=== PATIENT | female | born 1955 | race Caucasian/White ===

== ENCOUNTER 2023-02-27 11:58 | Inpatient (IN) | payer MEDICARE, OTHER ==
[2023-02-27] VITALS (8 sets, daily range): BP systolic 109–132; BP diastolic 52–85; TEMP 98.8–99.2; O2SAT 93–96
[~2023-02-27] VITALS: Ht 152.4 cm; Wt 110.4 kg
[~2023-02-27 11:58] MED LIST: ACET325T53 PO; ALBU2.5V13 NEB; ALLA266C2 TP; ATEN-171 PO; ATOR10TA PO; BISA10SU8 RC; Capsaicin TP; DILT30TA2 PO; DOCU-159 PO; FERR325T91 PO; FOLI1TAB16 PO; FURO-144 PO; GLIP1TAB6 PO; HYDR50TA61 PO; INSU100I4 SQ; INSU3INS6 SQ; Ipratropium Bromide IH; LEVO200T PO; MAGN400O6 PO; MENT1LOZ19 MM; Nortriptyline Hcl PO; OMEP20CA15 PO
[2023-02-27 12:28] LABS: BASOPHILS % (AUTO) 0.3 % (0.0-2.0); EOSINOPHILS # (AUTO) 0.2 K/uL (0.0-0.7); EOSINOPHILS % (AUTO) 1.6 % (0.0-6.0); HEMATOCRIT 37 % (33-45); LYMPHOCYTES # (AUTO) 0.9 K/uL (0.8-4.8); MEAN CORPUSCULAR HEMOGLOBIN 27 PG (26.0-33.0); MEAN CORPUSCULAR HGB CONC 33 g/dl (31.0-36.0); MEAN CORPUSCULAR VOLUME 81 fL (82-100); MONOCYTES # (AUTO) 0.7 K/uL (0.1-1.30); MONOCYTES % (AUTO) 5.7 % (2.0-12.0); NEUTROPHILS # (AUTO) 9.9 K/uL (1.8-8.9); NEUTROPHILS % (AUTO) 84.4 % (43.0-81.0); PLATELET COUNT (AUTO) 196 K/uL (150-450); RED BLOOD CELL COUNT(AUTO) 4.52 MIL/uL (4.0-5.2); RED CELL DISTRIBUTION WIDTH 15.7 % (11.5-15.0); WHITE BLOOD COUNT (AUTO) 11.7 K/uL (4.3-11.0)
[2023-02-27] MEDS ORDERED: ATOR10TA PO (12:33)
[2023-02-27] MEDS ORDERED: ASPI-1420 PO (12:33)
[2023-02-27] MEDS ORDERED: OXYB5TAB16 PO (12:33)
[2023-02-27] MEDS ORDERED: DOCU100C36 PO (12:33)
[2023-02-27] MEDS ORDERED: FURO-145 PO (12:33)
[2023-02-27] MEDS ORDERED: METO25TA20 PO (12:33)
[2023-02-27] MEDS ORDERED: INSU100I4 SQ (12:33)
[2023-02-27] MEDS ORDERED: TOPI100T38 PO (12:33)
[2023-02-27] MEDS ORDERED: SEMA0.25 SQ (12:33)
[2023-02-27] MEDS ORDERED: OXYC15TA2 PO (12:33)
[2023-02-27] MEDS ORDERED: MELO-107 PO (12:33)
[2023-02-27] MEDS ORDERED: ISOS30TA86 PO (12:33)
[2023-02-27] MEDS ORDERED: NALO4SPR NAS (12:33)
[2023-02-27] MEDS ORDERED: TRAZ-257 PO (12:33)
[2023-02-27] MEDS ORDERED: LEVO150T PO (12:33)
[2023-02-27] MEDS ORDERED: LORA-258 PO (12:33)
[2023-02-27] MEDS ORDERED: DULO60CA64 PO (12:33)
[2023-02-27] MEDS ORDERED: METF-442 PO (12:33)
[2023-02-27] MEDS ORDERED: ESOM40CA52 PO (12:33)
[2023-02-27] MEDS ORDERED: CLOP75TA15 PO (12:33)
[2023-02-27] MEDS ORDERED: INSU100V7 SQ (12:43)
[2023-02-27 12:51] LABS: CALCIUM, SERUM 8.5 mg/dL (8.5-10.1); CARBON DIOXIDE 24 mmol/L (21-32); CHLORIDE 107 mmol/L (98-107); CREATININE 1.3 mg/dL (0.6-1.3); GLUCOSE 180 mg/dL (74-106); POTASSIUM 4.3 mmol/L (3.5-5.1); SODIUM SERUM 140 mmol/L (136-145); UREA NITROGEN, BLOOD 30 mg/dL (7-18)
[2023-02-27 12:56] LABS: ALANINE AMINOTRANSFERASE 20 U/L (12-78); ALBUMIN 2.7 g/dL (3.4-5.0); ALKALINE PHOSPHATASE 103 U/L (46-116); ASPARTATE AMINOTRANSFERASE 14 U/L (15-37); BILIRUBIN,DIRECT 0.1 mg/dL (0.0-0.2); BILIRUBIN,TOTAL 0.3 mg/dL (0.2-1.0); TOTAL PROTEIN, SERUM 6.1 g/dL (6.4-8.2)
[2023-02-27] MEDS ORDERED: MORPHINE SULFATE INJ 2 MG/ML DISP.SYRIN ONE (12:56)
[2023-02-27] MEDS ORDERED: METOPROLOL TARTRATE INJ 5 MG/5 ML AMPUL IV ONE (13:00)
[2023-02-27] MEDS ORDERED: MORPHINE SULFATE INJ 2 MG/ML DISP.SYRIN IV ONE (13:00)
[2023-02-27] MEDS ORDERED: METOPROLOL TARTRATE 25 MG TABLET PO ONE (13:00)
[2023-02-27] MEDS ORDERED: METOPROLOL TARTRATE INJ 5 MG/5 ML AMPUL ONE (13:05)
[2023-02-27] MEDS ORDERED: METOPROLOL TARTRATE 25 MG TABLET ONE (13:06)
[2023-02-27] MEDS ORDERED: INSU300I3 SQ (13:30)
[2023-02-27] MEDS ORDERED: MAG HYDROX/AL HYDROX/SIMETH 30 ML UDC PO PRN (16:00)
[2023-02-27] MEDS ORDERED: DEXTROSE 50%-WATER 50 ML DISP.SYRIN IV PRN ×2 (16:00→19:00)
[2023-02-27] MEDS ORDERED: ZOLPIDEM TARTRATE 5 MG TABLET PO PRN (16:00)
[2023-02-27] MEDS ORDERED: ONDANSETRON HCL/PF 4 MG/2 ML VIAL IVP PRN (16:00)
[2023-02-27] MEDS ORDERED: MAGNESIUM HYDROXIDE 30 ML UDC PO PRN (16:00)
[2023-02-27] MEDS ORDERED: Z GUARD REMEDY 4 OZ OINT TP PRN (16:00)
[2023-02-27] MEDS ORDERED: DILTIAZEM HCL IV 125 MG in IV NS 0.9% 100 ML IV PRN (16:00)
[2023-02-27] MEDS: BLOOD SUGAR DIAGNOSTIC 1 EACH STRIP VI SCH ×2 (17:59→21:07)
[2023-02-27] MEDS ORDERED: ENOXAPARIN SODIUM 40 MG/0.4 ML DISP.SYRIN SQ SCH (18:00)
[2023-02-27] MEDS ORDERED: INSULIN REGULAR, HUMAN 100 UNIT/ML 3 ML VIAL SQ PRN (19:00)
[2023-02-27] MEDS ORDERED: *INSULIN REGULAR(HUMULIN R)HUM 100 UNIT/ML VIAL SQ PRN (19:00)
[2023-02-27] MEDS ORDERED: LORAZEPAM 0.5 MG TABLET PO PRN (19:00)
[2023-02-27] MEDS: ACETAMINOPHEN 325 MG TABLET PO PRN (19:45)
[2023-02-27] MEDS ORDERED: NALOXONE HCL 0.4 MG/ML AMPUL IV PRN (20:00)
[2023-02-27] MEDS ORDERED: oxyCODONE IR immediate release 5 MG PO PRN (20:00)
[2023-02-27] MEDS: TOPIRAMATE 100 MG TABLET PO SCH (21:06)
[2023-02-27] MEDS: ATORVASTATIN 10 MG TABLET PO SCH (21:06)
[2023-02-27] MEDS: TRAZODONE 50 MG TABLET PO SCH (21:06)
[2023-02-27] MEDS: INSULIN REGULAR, HUMAN 100 UNIT/ML 3 ML VIAL SQ PRN (21:25)
[2023-02-27] MEDS ORDERED: INSULIN GLARGINE, 100 UNIT/ML CARTRIDGE SQ SCH (22:00)
[2023-02-27] MEDS ORDERED: BLOOD SUGAR DIAGNOSTIC 1 EACH STRIP VI SCH (22:00)
[2023-02-28] VITALS (15 sets, daily range): BP systolic 105–150; BP diastolic 33–65; TEMP 97.9–98.6; O2SAT 93–97
[2023-02-28 04:39] LABS: CALCIUM, SERUM 8.7 mg/dL (8.5-10.1); CREATININE 1.3 mg/dL (0.6-1.3); MAGNESIUM 1.7 mg/dL (1.8-2.4); PHOSPHORUS 4.7 mg/dL (2.5-4.9); POTASSIUM 4.3 mmol/L (3.5-5.1)
[2023-02-28 04:51] LABS: THYROID STIMULATING HORMONE 1.203 uIU/mL (0.358-3.74)
[2023-02-28] MEDS: ACETAMINOPHEN 325 MG TABLET PO PRN (05:21)
[2023-02-28] MEDS ORDERED: INSULIN LISPRO/ASPART 100 UNIT/ML CARTRIDGE SQ SCH (07:30)
[2023-02-28] MEDS: PANTOPRAZOLE 40 MG TABLET.DR PO SCH (07:46)
[2023-02-28] MEDS: LEVOTHYROXINE SODIUM 50 MCG TABLET PO SCH (07:47)
[2023-02-28] MEDS: BLOOD SUGAR DIAGNOSTIC 1 EACH STRIP VI SCH ×4 (07:47→22:23)
[2023-02-28 08:43] LABS: BASOPHILS % (AUTO) 0.5 % (0.0-2.0); EOSINOPHILS # (AUTO) 0.2 K/uL (0.0-0.7); EOSINOPHILS % (AUTO) 1.9 % (0.0-6.0); HEMATOCRIT 36 % (33-45); HEMOGLOBIN 11.4 g/dL (11.5-14.8); LYMPHOCYTES # (AUTO) 1.3 K/uL (0.8-4.8); LYMPHOCYTES % (AUTO) 14.7 % (20.0-44.0); MEAN CORPUSCULAR HEMOGLOBIN 27 PG (26.0-33.0); MEAN CORPUSCULAR HGB CONC 32 g/dl (31.0-36.0); MEAN CORPUSCULAR VOLUME 83 fL (82-100); MONOCYTES # (AUTO) 0.6 K/uL (0.1-1.30); MONOCYTES % (AUTO) 6.4 % (2.0-12.0); NEUTROPHILS # (AUTO) 6.6 K/uL (1.8-8.9); NEUTROPHILS % (AUTO) 76.5 % (43.0-81.0); PLATELET COUNT (AUTO) 174 K/uL (150-450); WHITE BLOOD COUNT (AUTO) 8.6 K/uL (4.3-11.0)
[2023-02-28] MEDS ORDERED: Medication Not On Formulary EA (Esomeprazole Magnesium 40 MG) PO SCH (09:00)
[2023-02-28] MEDS ORDERED: FUROSEMIDE 20 MG TABLET PO SCH (09:00)
[2023-02-28] MEDS ORDERED: METOPROLOL TARTRATE 25 MG TABLET PO SCH (09:00)
[2023-02-28] MEDS ORDERED: MELOXICAM 7.5 MG TABLET PO SCH (09:00)
[2023-02-28] MEDS ORDERED: CLOPIDOGREL BISULFATE 75 MG TABLET PO SCH (09:00)
[2023-02-28] MEDS: DOCUSATE SODIUM 100 MG CAPSULE PO SCH ×2 (09:23→16:30)
[2023-02-28] MEDS: ASPIRIN EC 81 MG TABLET.DR PO SCH (09:23)
[2023-02-28] MEDS: OXYBUTYNIN CHLORIDE 5 MG TABLET PO SCH ×2 (09:24→16:30)
[2023-02-28] MEDS: DULOXETINE HCL 30 MG CAPSULE.DR PO SCH ×2 (09:25→16:30)
[2023-02-28] MEDS: CLOTRIMAZOLE 1% 15 GM TUBE TP SCH ×2 (09:27→16:31)
[2023-02-28] MEDS ORDERED: MAGNESIUM OXIDE 400 MG TABLET PO ONE (10:00)
[2023-02-28] MEDS ORDERED: Magnesium 1GM/D5W 100ML PREMIX 100 ML IV SCH (10:00)
[2023-02-28 10:41] LABS: THYROID STIMULATING HORMONE 1.506 uIU/mL (0.358-3.74)
[2023-02-28] MEDS: AMIODARONE HCL 200 MG TABLET PO SCH ×3 (11:25→17:00)
[2023-02-28] MEDS: ISOSORBIDE MONONITRATE (30MG) 30 MG TAB.SR.24H PO SCH (11:30)
[2023-02-28] MEDS: INSULIN LISPRO/ASPART 100 UNIT/ML CARTRIDGE SQ SCH ×2 (12:23→17:28)
[2023-02-28] MEDS ORDERED: IV NS 0.9% 250 ML IV ONE (13:41)
[2023-02-28] MEDS ORDERED: IOHEXOL-300 100 ML VIAL IV ONE (13:41)
[2023-02-28] MEDS: CARISOPRODOL 350 MG TABLET PO PRN ×2 (15:07→23:17)
[2023-02-28] MEDS: HYDROCODONE/APAP 5/325MG TABLET PO PRN (16:31)
[2023-02-28 19:07] LABS: APPEARANCE,URINE SLIGHTLY CLOUDY (CLEAR); BILIRUBIN,URINE NEGATIVE (NEGATIVE); BLOOD, URINE NEGATIVE Ery/uL (NEGATIVE); COLOR,URINE YELLOW (YELLOW); KETONES,URINE NEGATIVE (NEGATIVE); LEUKOCYTE ESTERASE ,URINE 1+ (NEGATIVE); NITRITE, URINE NEGATIVE (NEGATIVE); PROTEIN,URINE TRACE mg/dl (NEGATIVE); UGLUCOSE NEGATIVE (NEGATIVE); UROBILINOGEN,URINE 0.2 EU/dL (0.2)
[2023-02-28 19:25] LABS: ADD URINE CULTURE YES; BACTERIA,URINE 3+ /HPF (None Seen); RBC,URINE NONE SEEN /HPF (0-2)
[2023-02-28 19:26] LABS: MUCUS,URINE Few /LPF (None Seen)
[2023-02-28] MEDS: INSULIN GLARGINE, 100 UNIT/ML CARTRIDGE SQ SCH (22:00)
[2023-02-28] MEDS: ATORVASTATIN 10 MG TABLET PO SCH (22:02)
[2023-02-28] MEDS: TOPIRAMATE 100 MG TABLET PO SCH (22:02)
[2023-02-28] MEDS: TRAZODONE 50 MG TABLET PO SCH (22:02)
[2023-03-01] VITALS: BP 132/57; TEMP 98.4; O2SAT 96
[2023-03-01] MEDS: HYDROCODONE/APAP 5/325MG TABLET PO PRN ×3 (03:19→18:14)
[2023-03-01 04:00] VITALS: BP 130/55; TEMP 98.1; O2SAT 96
[2023-03-01] MEDS: PANTOPRAZOLE 40 MG TABLET.DR PO SCH (07:49)
[2023-03-01] MEDS: LEVOTHYROXINE SODIUM 50 MCG TABLET PO SCH (07:50)
[2023-03-01 08:00] VITALS: BP 153/56; TEMP 97.5; O2SAT 96
[2023-03-01] MEDS: INSULIN REGULAR, HUMAN 100 UNIT/ML 3 ML VIAL SQ PRN ×3 (08:19→17:42)
[2023-03-01] MEDS: INSULIN LISPRO/ASPART 100 UNIT/ML CARTRIDGE SQ SCH ×3 (08:21→16:52)
[2023-03-01] MEDS: BLOOD SUGAR DIAGNOSTIC 1 EACH STRIP VI SCH ×4 (08:22→22:17)
[2023-03-01] MEDS: ASPIRIN EC 81 MG TABLET.DR PO SCH (09:08)
[2023-03-01] MEDS: AMIODARONE HCL 200 MG TABLET PO SCH ×2 (09:08→16:45)
[2023-03-01] MEDS: DOCUSATE SODIUM 100 MG CAPSULE PO SCH ×2 (09:09→16:44)
[2023-03-01] MEDS: ISOSORBIDE MONONITRATE (30MG) 30 MG TAB.SR.24H PO SCH (09:09)
[2023-03-01] MEDS: OXYBUTYNIN CHLORIDE 5 MG TABLET PO SCH ×2 (09:10→16:44)
[2023-03-01] MEDS: CLOTRIMAZOLE 1% 15 GM TUBE TP SCH ×2 (09:10→16:28)
[2023-03-01] MEDS: DULOXETINE HCL 30 MG CAPSULE.DR PO SCH ×2 (09:14→16:45)
[2023-03-01] MEDS: ENOXAPARIN SODIUM 100 MG/ML DISP.SYRIN SQ SCH (09:59)
[2023-03-01] MEDS: CARISOPRODOL 350 MG TABLET PO PRN ×2 (09:59→20:23)
[2023-03-01 12:00] VITALS: BP 126/52; TEMP 97.6; O2SAT 96
[2023-03-01] MEDS ORDERED: BISACODYL (5 MG) 5 MG TABLET.DR PO ONE (14:30)
[2023-03-01] MEDS ORDERED: BISACODYL SUPP (10 MG) 10 MG/SUPP.RECT SUPP.RECT RC PRN (14:30)
[2023-03-01] MEDS: POLYETHYLENE GLYCOL 3350 17 GM POWD.PACK PO SCH ×2 (15:41→22:01)
[2023-03-01] MEDS: CEFTRIAXONE 1 G in IV D5W 50 ML IV SCH (15:41)
[2023-03-01 16:00] VITALS: BP 129/57; TEMP 98.2; O2SAT 96
[2023-03-01 20:00] VITALS: BP 142/61; TEMP 97.9; O2SAT 98
[2023-03-01] MEDS: TRAZODONE 50 MG TABLET PO SCH (22:01)
[2023-03-01] MEDS: TOPIRAMATE 100 MG TABLET PO SCH (22:01)
[2023-03-01] MEDS: ATORVASTATIN 10 MG TABLET PO SCH (22:01)
[2023-03-01] MEDS: INSULIN GLARGINE, 100 UNIT/ML CARTRIDGE SQ SCH (22:18)
[2023-03-02] VITALS: BP 141/62; TEMP 98; O2SAT 96
[2023-03-02 04:00] VITALS: BP 137/63; TEMP 98; O2SAT 96
[2023-03-02] MEDS: HYDROCODONE/APAP 5/325MG TABLET PO PRN ×3 (04:19→15:56)
[2023-03-02 06:08] LABS: BASOPHILS % (AUTO) 0.4 % (0.0-2.0); EOSINOPHILS # (AUTO) 0.2 K/uL (0.0-0.7); EOSINOPHILS % (AUTO) 2.6 % (0.0-6.0); HEMATOCRIT 35 % (33-45); HEMOGLOBIN 11.6 g/dL (11.5-14.8); LYMPHOCYTES # (AUTO) 0.8 K/uL (0.8-4.8); LYMPHOCYTES % (AUTO) 13.3 % (20.0-44.0); MEAN CORPUSCULAR HEMOGLOBIN 27 PG (26.0-33.0); MEAN CORPUSCULAR HGB CONC 33 g/dl (31.0-36.0); MEAN CORPUSCULAR VOLUME 81 fL (82-100); MONOCYTES # (AUTO) 0.4 K/uL (0.1-1.30); MONOCYTES % (AUTO) 7.1 % (2.0-12.0); NEUTROPHILS # (AUTO) 4.6 K/uL (1.8-8.9); NEUTROPHILS % (AUTO) 76.6 % (43.0-81.0); PLATELET COUNT (AUTO) 169 K/uL (150-450); RED BLOOD CELL COUNT(AUTO) 4.28 MIL/uL (4.0-5.2); RED CELL DISTRIBUTION WIDTH 15.6 % (11.5-15.0)
[2023-03-02 06:21] LABS: CALCIUM, SERUM 8.7 mg/dL (8.5-10.1); CREATININE 1.2 mg/dL (0.6-1.3); POTASSIUM 4.3 mmol/L (3.5-5.1)
[2023-03-02 08:00] VITALS: BP 155/67; TEMP 97.7; O2SAT 98
[2023-03-02] MEDS: LEVOTHYROXINE SODIUM 50 MCG TABLET PO SCH (08:00)
[2023-03-02] MEDS: BLOOD SUGAR DIAGNOSTIC 1 EACH STRIP VI SCH ×4 (08:02→22:39)
[2023-03-02] MEDS: INSULIN LISPRO/ASPART 100 UNIT/ML CARTRIDGE SQ SCH ×3 (08:02→16:46)
[2023-03-02] MEDS: PANTOPRAZOLE 40 MG TABLET.DR PO SCH (08:02)
[2023-03-02] MEDS: DOCUSATE SODIUM 100 MG CAPSULE PO SCH ×2 (08:58→15:55)
[2023-03-02] MEDS: DULOXETINE HCL 30 MG CAPSULE.DR PO SCH ×2 (08:59→15:56)
[2023-03-02] MEDS: AMIODARONE HCL 200 MG TABLET PO SCH ×2 (08:59→16:44)
[2023-03-02] MEDS: OXYBUTYNIN CHLORIDE 5 MG TABLET PO SCH ×2 (09:00→15:56)
[2023-03-02] MEDS: ASPIRIN EC 81 MG TABLET.DR PO SCH (09:00)
[2023-03-02] MEDS: ISOSORBIDE MONONITRATE (30MG) 30 MG TAB.SR.24H PO SCH (09:00)
[2023-03-02] MEDS: ENOXAPARIN SODIUM 100 MG/ML DISP.SYRIN SQ SCH (09:01)
[2023-03-02] MEDS: CLOTRIMAZOLE 1% 15 GM TUBE TP SCH ×2 (09:33→16:44)
[2023-03-02] MEDS: CARISOPRODOL 350 MG TABLET PO PRN ×2 (11:22→20:42)
[2023-03-02] MEDS: INSULIN REGULAR, HUMAN 100 UNIT/ML 3 ML VIAL SQ PRN ×2 (11:38→18:13)
[2023-03-02 12:00] VITALS: BP 121/57; TEMP 97.5; O2SAT 100
[2023-03-02] MEDS: CEFTRIAXONE 1 G in IV D5W 50 ML IV SCH (15:22)
[2023-03-02 16:00] VITALS: BP 132/58; TEMP 97.5; O2SAT 100
[2023-03-02] MEDS ORDERED: MAGNESIUM CITRATE 296 ML BOTTLE PO ONE (16:00)
[2023-03-02 20:00] VITALS: BP 160/69; TEMP 98.2; O2SAT 96
[2023-03-02] MEDS: TOPIRAMATE 100 MG TABLET PO SCH (21:51)
[2023-03-02] MEDS: ATORVASTATIN 10 MG TABLET PO SCH (21:51)
[2023-03-02] MEDS: TRAZODONE 50 MG TABLET PO SCH (21:52)
[2023-03-02] MEDS: POLYETHYLENE GLYCOL 3350 17 GM POWD.PACK PO SCH (21:52)
[2023-03-02] MEDS: oxyCODONE IR immediate release 5 MG PO PRN (22:01)
[2023-03-02] MEDS: *INSULIN REGULAR(HUMULIN R)HUM 100 UNIT/ML VIAL SQ PRN (22:08)
[2023-03-02] MEDS: INSULIN GLARGINE, 100 UNIT/ML CARTRIDGE SQ SCH (22:40)
[2023-03-03] VITALS: BP 147/70; TEMP 97.7; O2SAT 96
[2023-03-03 04:00] VITALS: BP 142/63; TEMP 97.7; O2SAT 96
[2023-03-03] MEDS: oxyCODONE IR immediate release 5 MG PO PRN ×4 (04:42→23:20)
[2023-03-03] MEDS: PANTOPRAZOLE 40 MG TABLET.DR PO SCH (08:30)
[2023-03-03] MEDS: BLOOD SUGAR DIAGNOSTIC 1 EACH STRIP VI SCH ×4 (08:32→21:35)
[2023-03-03] MEDS: LEVOTHYROXINE SODIUM 50 MCG TABLET PO SCH (08:32)
[2023-03-03] MEDS: INSULIN LISPRO/ASPART 100 UNIT/ML CARTRIDGE SQ SCH ×3 (08:35→17:04)
[2023-03-03] MEDS: ISOSORBIDE MONONITRATE (30MG) 30 MG TAB.SR.24H PO SCH (08:37)
[2023-03-03] MEDS: OXYBUTYNIN CHLORIDE 5 MG TABLET PO SCH ×2 (08:38→16:34)
[2023-03-03] MEDS: ASPIRIN EC 81 MG TABLET.DR PO SCH (08:38)
[2023-03-03] MEDS: DULOXETINE HCL 30 MG CAPSULE.DR PO SCH ×2 (08:38→16:35)
[2023-03-03] MEDS: DOCUSATE SODIUM 100 MG CAPSULE PO SCH ×2 (08:39→16:35)
[2023-03-03] MEDS: AMIODARONE HCL 200 MG TABLET PO SCH ×2 (08:39→16:35)
[2023-03-03] MEDS: CARISOPRODOL 350 MG TABLET PO PRN ×2 (08:44→20:08)
[2023-03-03] MEDS: CLOTRIMAZOLE 1% 15 GM TUBE TP SCH ×2 (09:48→17:23)
[2023-03-03 10:23] VITALS: BP 134/60; TEMP 97.9; O2SAT 98
[2023-03-03] MEDS: ENOXAPARIN SODIUM 100 MG/ML DISP.SYRIN SQ SCH (10:54)
[2023-03-03 13:03] VITALS: BP 134/57; TEMP 98.6; O2SAT 98
[2023-03-03] MEDS: CEFTRIAXONE 1 G in IV D5W 50 ML IV SCH (15:32)
[2023-03-03 16:20] VITALS: BP 121/55; TEMP 98.6; O2SAT 98
[2023-03-03] MEDS ORDERED: MAGNESIUM CITRATE 296 ML BOTTLE PO ONE (16:30)
[2023-03-03 20:00] VITALS: BP 133/57; TEMP 98.2; O2SAT 98
[2023-03-03] MEDS: POLYETHYLENE GLYCOL 3350 17 GM POWD.PACK PO SCH (21:21)
[2023-03-03] MEDS: TOPIRAMATE 100 MG TABLET PO SCH (21:21)
[2023-03-03] MEDS: TRAZODONE 50 MG TABLET PO SCH (21:21)
[2023-03-03] MEDS: ATORVASTATIN 10 MG TABLET PO SCH (21:21)
[2023-03-03] MEDS: *INSULIN REGULAR(HUMULIN R)HUM 100 UNIT/ML VIAL SQ PRN (21:37)
[2023-03-03] MEDS: INSULIN GLARGINE, 100 UNIT/ML CARTRIDGE SQ SCH (21:39)
[2023-03-04] VITALS: BP 123/58; TEMP 97.2; O2SAT 98
[2023-03-04 04:00] VITALS: BP 147/61; TEMP 97.2; O2SAT 98
[2023-03-04] MEDS: oxyCODONE IR immediate release 5 MG PO PRN ×3 (05:33→20:29)
[2023-03-04 08:00] VITALS: BP 147/61; TEMP 97.2; O2SAT 98
[2023-03-04] MEDS: LEVOTHYROXINE SODIUM 50 MCG TABLET PO SCH (08:11)
[2023-03-04] MEDS: PANTOPRAZOLE 40 MG TABLET.DR PO SCH (08:11)
[2023-03-04] MEDS: BLOOD SUGAR DIAGNOSTIC 1 EACH STRIP VI SCH ×4 (08:20→22:48)
[2023-03-04] MEDS: INSULIN LISPRO/ASPART 100 UNIT/ML CARTRIDGE SQ SCH ×3 (08:32→17:29)
[2023-03-04] MEDS: OXYBUTYNIN CHLORIDE 5 MG TABLET PO SCH ×2 (09:18→16:29)
[2023-03-04] MEDS: ASPIRIN EC 81 MG TABLET.DR PO SCH (09:18)
[2023-03-04] MEDS: DOCUSATE SODIUM 100 MG CAPSULE PO SCH ×2 (09:18→16:28)
[2023-03-04] MEDS: DULOXETINE HCL 30 MG CAPSULE.DR PO SCH ×2 (09:18→16:28)
[2023-03-04] MEDS: ISOSORBIDE MONONITRATE (30MG) 30 MG TAB.SR.24H PO SCH (09:19)
[2023-03-04] MEDS: AMIODARONE HCL 200 MG TABLET PO SCH ×2 (09:20→16:28)
[2023-03-04] MEDS: CLOTRIMAZOLE 1% 15 GM TUBE TP SCH ×2 (09:20→16:31)
[2023-03-04] MEDS: ENOXAPARIN SODIUM 100 MG/ML DISP.SYRIN SQ SCH (09:23)
[2023-03-04] MEDS: CARISOPRODOL 350 MG TABLET PO PRN (10:13)
[2023-03-04 14:16] VITALS: BP 139/87; TEMP 96.9; O2SAT 98
[2023-03-04] MEDS: CEFTRIAXONE 1 G in IV D5W 50 ML IV SCH (14:29)
[2023-03-04] MEDS ORDERED: BISACODYL (5 MG) 5 MG TABLET.DR PO ONE (14:30)
[2023-03-04 16:19] VITALS: BP 142/60; TEMP 96.9; O2SAT 98
[2023-03-04 20:00] VITALS: BP 111/56; TEMP 98.1; O2SAT 95
[2023-03-04] MEDS: ATORVASTATIN 10 MG TABLET PO SCH (22:21)
[2023-03-04] MEDS: TOPIRAMATE 100 MG TABLET PO SCH (22:21)
[2023-03-04] MEDS: POLYETHYLENE GLYCOL 3350 17 GM POWD.PACK PO SCH (22:21)
[2023-03-04] MEDS: TRAZODONE 50 MG TABLET PO SCH (22:21)
[2023-03-04] MEDS: INSULIN GLARGINE, 100 UNIT/ML CARTRIDGE SQ SCH (22:49)
[2023-03-05] VITALS: BP 122/55; TEMP 97.7; O2SAT 95
[2023-03-05] MEDS: CARISOPRODOL 350 MG TABLET PO PRN ×2 (00:25→14:10)
[2023-03-05 04:00] VITALS: BP 138/54; TEMP 97.9; O2SAT 100
[2023-03-05] MEDS: oxyCODONE IR immediate release 5 MG PO PRN ×4 (04:24→23:23)
[2023-03-05] MEDS: PANTOPRAZOLE 40 MG TABLET.DR PO SCH (07:58)
[2023-03-05] MEDS: LEVOTHYROXINE SODIUM 50 MCG TABLET PO SCH (07:58)
[2023-03-05] MEDS: INSULIN LISPRO/ASPART 100 UNIT/ML CARTRIDGE SQ SCH ×3 (08:00→16:58)
[2023-03-05] MEDS: BLOOD SUGAR DIAGNOSTIC 1 EACH STRIP VI SCH ×4 (08:20→22:13)
[2023-03-05 08:40] VITALS: BP 150/64; TEMP 97.7; O2SAT 98
[2023-03-05] MEDS: DULOXETINE HCL 30 MG CAPSULE.DR PO SCH ×2 (08:40→17:06)
[2023-03-05] MEDS: AMIODARONE HCL 200 MG TABLET PO SCH ×2 (08:41→17:08)
[2023-03-05] MEDS: ISOSORBIDE MONONITRATE (30MG) 30 MG TAB.SR.24H PO SCH (08:41)
[2023-03-05] MEDS: ASPIRIN EC 81 MG TABLET.DR PO SCH (08:41)
[2023-03-05] MEDS: OXYBUTYNIN CHLORIDE 5 MG TABLET PO SCH ×2 (08:42→17:07)
[2023-03-05] MEDS: DOCUSATE SODIUM 100 MG CAPSULE PO SCH ×2 (08:42→17:06)
[2023-03-05] MEDS: INSULIN REGULAR, HUMAN 100 UNIT/ML 3 ML VIAL SQ PRN ×2 (08:43→12:02)
[2023-03-05] MEDS: CLOTRIMAZOLE 1% 15 GM TUBE TP SCH ×2 (09:18→17:49)
[2023-03-05] MEDS: ENOXAPARIN SODIUM 100 MG/ML DISP.SYRIN SQ SCH (10:00)
[2023-03-05] MEDS ORDERED: ENOXAPARIN SODIUM 100 MG/ML DISP.SYRIN SQ SCH ×2 (11:30→15:00)
[2023-03-05 12:12] VITALS: BP 162/57; TEMP 97.8; O2SAT 98
[2023-03-05] MEDS ORDERED: MINERAL OIL 133 ML (PYXIS) 1 EA ENEMA RC ONE (15:00)
[2023-03-05] MEDS: CEFTRIAXONE 1 G in IV D5W 50 ML IV SCH (15:15)
[2023-03-05 16:12] VITALS: BP 125/54; TEMP 97.3; O2SAT 98
[2023-03-05 20:00] VITALS: BP 123/63; TEMP 98.2; O2SAT 98
[2023-03-05] MEDS: ATORVASTATIN 10 MG TABLET PO SCH (21:22)
[2023-03-05] MEDS: POLYETHYLENE GLYCOL 3350 17 GM POWD.PACK PO SCH (21:22)
[2023-03-05] MEDS: TRAZODONE 50 MG TABLET PO SCH (21:22)
[2023-03-05] MEDS: TOPIRAMATE 100 MG TABLET PO SCH (21:22)
[2023-03-05] MEDS: INSULIN GLARGINE, 100 UNIT/ML CARTRIDGE SQ SCH (22:00)
[2023-03-06] VITALS: BP 119/50; TEMP 97.5; O2SAT 100
[2023-03-06 04:51] VITALS: BP 123/55; TEMP 98.2; O2SAT 100
[2023-03-06] MEDS: BLOOD SUGAR DIAGNOSTIC 1 EACH STRIP VI SCH ×4 (06:02→22:50)
[2023-03-06] MEDS: oxyCODONE IR immediate release 5 MG PO PRN ×3 (06:39→23:25)
[2023-03-06 06:44] LABS: BASOPHILS % (AUTO) 0.4 % (0.0-2.0); EOSINOPHILS # (AUTO) 0.1 K/uL (0.0-0.7); EOSINOPHILS % (AUTO) 1.5 % (0.0-6.0); HEMATOCRIT 37 % (33-45); LYMPHOCYTES # (AUTO) 0.4 K/uL (0.8-4.8); LYMPHOCYTES % (AUTO) 4.7 % (20.0-44.0); MEAN CORPUSCULAR HEMOGLOBIN 27 PG (26.0-33.0); MEAN CORPUSCULAR HGB CONC 33 g/dl (31.0-36.0); MEAN CORPUSCULAR VOLUME 82 fL (82-100); MONOCYTES # (AUTO) 0.5 K/uL (0.1-1.30); MONOCYTES % (AUTO) 6.5 % (2.0-12.0); NEUTROPHILS # (AUTO) 6.9 K/uL (1.8-8.9); NEUTROPHILS % (AUTO) 86.9 % (43.0-81.0); PLATELET COUNT (AUTO) 169 K/uL (150-450); RED BLOOD CELL COUNT(AUTO) 4.48 MIL/uL (4.0-5.2); RED CELL DISTRIBUTION WIDTH 15.7 % (11.5-15.0); WHITE BLOOD COUNT (AUTO) 7.9 K/uL (4.3-11.0)
[2023-03-06 07:07] LABS: CALCIUM, SERUM 8.9 mg/dL (8.5-10.1); CREATININE 1.5 mg/dL (0.6-1.3); POTASSIUM 4.4 mmol/L (3.5-5.1)
[2023-03-06 07:18] LABS: INR 0.97 (0.91-1.10); PROTHROMBIN TIME 10.3 SECS (9.2-11.1)
[2023-03-06] MEDS: INSULIN LISPRO/ASPART 100 UNIT/ML CARTRIDGE SQ SCH ×3 (07:30→17:28)
[2023-03-06] MEDS ORDERED: LIDOCAINE 1%-EPI 1:100,000 20 ML VIAL ONE ×2 (07:50→12:26)
[2023-03-06] MEDS ORDERED: LIDOCAINE 1% INJ 50 ML MDV IJ ONE (07:50)
[2023-03-06] MEDS ORDERED: BUPIVACAINE 0.5 % PF 150 MG/30 ML VIAL ONE (07:50)
[2023-03-06 08:00] VITALS: BP 157/68; TEMP 98.4; O2SAT 93
[2023-03-06] MEDS: ASPIRIN EC 81 MG TABLET.DR PO SCH (09:00)
[2023-03-06] MEDS ORDERED: IV D5/ 0.9% NACL 1,000 ML IV PRN (09:00)
[2023-03-06] MEDS: PANTOPRAZOLE 40 MG TABLET.DR PO SCH (09:02)
[2023-03-06] MEDS: LEVOTHYROXINE SODIUM 50 MCG TABLET PO SCH (09:03)
[2023-03-06] MEDS: DULOXETINE HCL 30 MG CAPSULE.DR PO SCH ×2 (09:03→16:26)
[2023-03-06] MEDS: DOCUSATE SODIUM 100 MG CAPSULE PO SCH ×2 (09:03→16:26)
[2023-03-06] MEDS: OXYBUTYNIN CHLORIDE 5 MG TABLET PO SCH ×2 (09:03→16:26)
[2023-03-06] MEDS: ISOSORBIDE MONONITRATE (30MG) 30 MG TAB.SR.24H PO SCH (09:04)
[2023-03-06] MEDS: AMIODARONE HCL 200 MG TABLET PO SCH ×2 (09:04→16:26)
[2023-03-06] MEDS: CLOTRIMAZOLE 1% 15 GM TUBE TP SCH ×2 (09:09→16:30)
[2023-03-06 12:00] VITALS: BP 124/61; TEMP 98.4; O2SAT 94
[2023-03-06] MEDS ORDERED: FENTANYL PF 100MCG/2ML AMPUL ONE (12:57)
[2023-03-06] MEDS ORDERED: ROCURONIUM BROMIDE 50 MG/5 ML ONE (12:59)
[2023-03-06] MEDS ORDERED: SEVOFLURANE 250 ML BOTTLE IH ONE (13:08)
[2023-03-06 16:00] VITALS: BP 129/61; TEMP 97.3; O2SAT 100
[2023-03-06] MEDS: CEFTRIAXONE 1 G in IV D5W 50 ML IV SCH (16:11)
[2023-03-06] MEDS: CARISOPRODOL 350 MG TABLET PO PRN (18:22)
[2023-03-06 20:00] VITALS: BP 100/41; TEMP 97.9; O2SAT 97
[2023-03-06] MEDS: TRAZODONE 50 MG TABLET PO SCH (22:39)
[2023-03-06] MEDS: TOPIRAMATE 100 MG TABLET PO SCH (22:40)
[2023-03-06] MEDS: POLYETHYLENE GLYCOL 3350 17 GM POWD.PACK PO SCH (22:40)
[2023-03-06] MEDS: ATORVASTATIN 10 MG TABLET PO SCH (22:40)
[2023-03-06] MEDS: INSULIN GLARGINE, 100 UNIT/ML CARTRIDGE SQ SCH (23:15)
[2023-03-07] VITALS: BP 122/73; TEMP 97.6; O2SAT 100
[2023-03-07 04:00] VITALS: BP 128/49; TEMP 97.8; O2SAT 96
[2023-03-07] MEDS: oxyCODONE IR immediate release 5 MG PO PRN ×4 (05:00→18:31)
[2023-03-07] MEDS: BLOOD SUGAR DIAGNOSTIC 1 EACH STRIP VI SCH ×4 (07:20→22:47)
[2023-03-07] MEDS: INSULIN REGULAR, HUMAN 100 UNIT/ML 3 ML VIAL SQ PRN ×3 (07:21→17:33)
[2023-03-07 07:27] LABS: BASOPHILS % (AUTO) 0.3 % (0.0-2.0); EOSINOPHILS # (AUTO) 0.1 K/uL (0.0-0.7); EOSINOPHILS % (AUTO) 1.8 % (0.0-6.0); HEMATOCRIT 36 % (33-45); HEMOGLOBIN 11.7 g/dL (11.5-14.8); LYMPHOCYTES # (AUTO) 0.5 K/uL (0.8-4.8); LYMPHOCYTES % (AUTO) 6.6 % (20.0-44.0); MEAN CORPUSCULAR HEMOGLOBIN 27 PG (26.0-33.0); MEAN CORPUSCULAR HGB CONC 33 g/dl (31.0-36.0); MEAN CORPUSCULAR VOLUME 83 fL (82-100); MONOCYTES # (AUTO) 0.7 K/uL (0.1-1.30); MONOCYTES % (AUTO) 9.9 % (2.0-12.0); NEUTROPHILS # (AUTO) 5.8 K/uL (1.8-8.9); NEUTROPHILS % (AUTO) 81.4 % (43.0-81.0); PLATELET COUNT (AUTO) 167 K/uL (150-450); RED BLOOD CELL COUNT(AUTO) 4.33 MIL/uL (4.0-5.2); RED CELL DISTRIBUTION WIDTH 15.7 % (11.5-15.0); WHITE BLOOD COUNT (AUTO) 7.1 K/uL (4.3-11.0)
[2023-03-07 07:29] LABS: CALCIUM, SERUM 8.3 mg/dL (8.5-10.1); CREATININE 1.6 mg/dL (0.6-1.3); POTASSIUM 4.5 mmol/L (3.5-5.1)
[2023-03-07] MEDS: LEVOTHYROXINE SODIUM 50 MCG TABLET PO SCH (07:32)
[2023-03-07] MEDS: PANTOPRAZOLE 40 MG TABLET.DR PO SCH (07:32)
[2023-03-07] MEDS: INSULIN LISPRO/ASPART 100 UNIT/ML CARTRIDGE SQ SCH ×3 (07:35→17:23)
[2023-03-07 08:00] VITALS: BP 130/52; TEMP 98.8; O2SAT 99
[2023-03-07] MEDS: DOCUSATE SODIUM 100 MG CAPSULE PO SCH ×2 (08:52→17:00)
[2023-03-07] MEDS: DULOXETINE HCL 30 MG CAPSULE.DR PO SCH ×2 (08:52→17:25)
[2023-03-07] MEDS: ASPIRIN EC 81 MG TABLET.DR PO SCH (08:52)
[2023-03-07] MEDS: ISOSORBIDE MONONITRATE (30MG) 30 MG TAB.SR.24H PO SCH (08:53)
[2023-03-07] MEDS: AMIODARONE HCL 200 MG TABLET PO SCH ×2 (08:53→17:27)
[2023-03-07] MEDS: OXYBUTYNIN CHLORIDE 5 MG TABLET PO SCH ×2 (08:53→17:25)
[2023-03-07] MEDS: APIXABAN 5 MG TABLET PO SCH ×2 (08:54→17:24)
[2023-03-07] MEDS: CLOTRIMAZOLE 1% 15 GM TUBE TP SCH ×2 (09:26→17:31)
[2023-03-07] MEDS ORDERED: IV NS 0.9% 1,000 ML IV PRN (10:30)
[2023-03-07 12:00] VITALS: BP 122/50; TEMP 99.1; O2SAT 96
[2023-03-07] MEDS: CARISOPRODOL 350 MG TABLET PO PRN (14:14)
[2023-03-07] MEDS: CEFTRIAXONE 1 G in IV D5W 50 ML IV SCH (15:41)
[2023-03-07 16:00] VITALS: BP 115/46; TEMP 99.3; O2SAT 97
[2023-03-07 20:00] VITALS: BP 128/39; TEMP 98.8; O2SAT 97
[2023-03-07] MEDS: ATORVASTATIN 10 MG TABLET PO SCH (22:15)
[2023-03-07] MEDS: POLYETHYLENE GLYCOL 3350 17 GM POWD.PACK PO SCH (22:15)
[2023-03-07] MEDS: TRAZODONE 50 MG TABLET PO SCH (22:15)
[2023-03-07] MEDS: TOPIRAMATE 100 MG TABLET PO SCH (22:16)
[2023-03-07] MEDS: *INSULIN REGULAR(HUMULIN R)HUM 100 UNIT/ML VIAL SQ PRN (22:48)
[2023-03-07] MEDS: INSULIN GLARGINE, 100 UNIT/ML CARTRIDGE SQ SCH (22:52)
[2023-03-08] VITALS: BP 136/50; TEMP 97.5; O2SAT 95
[2023-03-08] MEDS: oxyCODONE IR immediate release 5 MG PO PRN ×3 (00:41→13:46)
[2023-03-08 04:00] VITALS: BP 135/43; TEMP 97.8; O2SAT 96
[2023-03-08 07:05] LABS: CALCIUM, SERUM 7.8 mg/dL (8.5-10.1); CREATININE 1.7 mg/dL (0.6-1.3); POTASSIUM 4.3 mmol/L (3.5-5.1)
[2023-03-08] MEDS: LEVOTHYROXINE SODIUM 50 MCG TABLET PO SCH (07:36)
[2023-03-08] MEDS: PANTOPRAZOLE 40 MG TABLET.DR PO SCH (07:36)
[2023-03-08] MEDS: INSULIN LISPRO/ASPART 100 UNIT/ML CARTRIDGE SQ SCH ×2 (07:39→12:05)
[2023-03-08] MEDS: BLOOD SUGAR DIAGNOSTIC 1 EACH STRIP VI SCH ×2 (07:44→12:06)
[2023-03-08 08:00] VITALS: BP 131/49; TEMP 99.9; O2SAT 98
[2023-03-08] MEDS: ISOSORBIDE MONONITRATE (30MG) 30 MG TAB.SR.24H PO SCH (08:03)
[2023-03-08] MEDS: ASPIRIN EC 81 MG TABLET.DR PO SCH (08:04)
[2023-03-08] MEDS: DULOXETINE HCL 30 MG CAPSULE.DR PO SCH (08:04)
[2023-03-08] MEDS: AMIODARONE HCL 200 MG TABLET PO SCH (08:04)
[2023-03-08] MEDS: OXYBUTYNIN CHLORIDE 5 MG TABLET PO SCH (08:05)
[2023-03-08] MEDS: APIXABAN 5 MG TABLET PO SCH (08:07)
[2023-03-08] MEDS: DOCUSATE SODIUM 100 MG CAPSULE PO SCH (08:10)
[2023-03-08] MEDS: CLOTRIMAZOLE 1% 15 GM TUBE TP SCH (09:18)
[2023-03-08 12:00] VITALS: BP 150/50; TEMP 98.4; O2SAT 98
[2023-03-08] MEDS: INSULIN REGULAR, HUMAN 100 UNIT/ML 3 ML VIAL SQ PRN (12:08)
== END 2023-03-08 15:37 | DRG 264 ==
LOC: ER 12:00 → ICU 17:15 → TELE1 02-28 11:52
PROVIDERS: ADMIT Student in an Organized Health Care Education/Training Program; ATTEND Internal Medicine
PROC: 0JB90ZZ Excision of Buttock Subcutaneous Tissue and Fascia, Open Approach (ICD-10-PCS; principal; 2023-03-06)
DX: I48.91 Unspecified atrial fibrillation (principal); E44.0 Moderate protein-calorie malnutrition; I13.0 Hypertensive heart and chronic kidney disease with heart failure and stage 1 through stage 4 chronic kidney disease, or unspecified chronic kidney disease; L02.31 Cutaneous abscess of buttock; N39.0 Urinary tract infection, site not specified; Z68.42 Body mass index [BMI] 45.0-49.9, adult; I50.9 Heart failure, unspecified; E11.42 Type 2 diabetes mellitus with diabetic polyneuropathy; E11.22 Type 2 diabetes mellitus with diabetic chronic kidney disease; Z79.4 Long term (current) use of insulin; E03.9 Hypothyroidism, unspecified; Z79.82 Long term (current) use of aspirin; Z79.84 Long term (current) use of oral hypoglycemic drugs; Z79.891 Long term (current) use of opiate analgesic; Z79.899 Other long term (current) drug therapy; Z95.5 Presence of coronary angioplasty implant and graft; Z79.02 Long term (current) use of antithrombotics/antiplatelets; E66.01 Morbid (severe) obesity due to excess calories; E78.5 Hyperlipidemia, unspecified; E83.42 Hypomagnesemia; E86.0 Dehydration; E05.90 Thyrotoxicosis, unspecified without thyrotoxic crisis or storm; I25.10 Atherosclerotic heart disease of native coronary artery without angina pectoris; L98.9 Disorder of the skin and subcutaneous tissue, unspecified; N18.30 Chronic kidney disease, stage 3 unspecified; F32.A Depression, unspecified; F41.9 Anxiety disorder, unspecified; G47.33 Obstructive sleep apnea (adult) (pediatric); G89.4 Chronic pain syndrome; I70.8 Atherosclerosis of other arteries; B96.20 Unspecified Escherichia coli [E. coli] as the cause of diseases classified elsewhere; K43.9 Ventral hernia without obstruction or gangrene; K59.00 Constipation, unspecified; L98.419 Non-pressure chronic ulcer of buttock with unspecified severity; M19.90 Unspecified osteoarthritis, unspecified site; N32.81 Overactive bladder; L89.156 Pressure-induced deep tissue damage of sacral region; Z79.01 Long term (current) use of anticoagulants; Z74.09 Other reduced mobility
CPT/HCPCS: 36415; 71045-TC; 80048-TC; 80076-TC; 81001; 82962-TC; 83735-TC; 84100-TC; 84439-TC; 84443-TC; 84484-TC; 85025-TC; 85610-TC; 87086-TC; 93307-TC; 97112-TC; 97116-TC; 97530-TC; A4223; A6253; A6402; G0378; J0330; J0690; J0696; J1650; J1815; J2270; J2370; J2405; J2704; J3010; J3490; J7030; J7042; J7050; J7060; Q9967